=== PATIENT | male | born 1965 ===

== ENCOUNTER 2023-02-05 05:26 | Day surgery (SDC) | payer OTHER ==
[2023-02-03 10:47] LABS: URINE APPEARANCE Clear; URINE BILIRRUBIN Negative (NEGATIVE); URINE BLOOD Negative; URINE COLOR Yellow; URINE GLUCOSE Negative (NEGATIVE); URINE LEUKOCYTE Negative; URINE NITRATE Negative; URINE PROTEIN Negative (NEGATIVE); URINE UROBILINOGEN 0.2 E.U./dl
[2023-02-03 10:50] LABS: HEMATOCRIT 39.3 % (39.0-48.0); HEMOGLOBIN 12.9 g/dL (13-16.00); MEAN CELL VOLUME 76.6 fL (80.0-100.00); MEAN CORPUSCULAR HEMOGLOBIN 25.2 pg (27.00-32.0); MEAN CORPUSCULAR HGB CONC 32.9 g/dl (32.0-36.0); PLATELET COUNT 240 K/uL (150-450); RED BLOOD COUNT 5.13 M/uL (4.00-6.00)
[2023-02-03 11:19] LABS: ALBUMIN 3.7 gm/dL (3.4-5.0); BILIRUBIN TOTAL 1.25 mg/dL (0.3-1.2); CALCIUM 9.6 mg/dL (8.5-10.1); CREATININE SERUM 1.07 mg/dL (0.70-1.30); GFR 70.98; GLOBULINA 4.1 G/DL (2.4-3.5); INR 1.06; PARTIAL THROMBOPLASTIN TIME 27.6 SECONDS (22.0-34.0); POTASSIUM 4.93 mEq/L (3.5-5.1); PROTHROMBIN TIME 11.1 SECONDS (9.0-11.5); TOTAL PROTEIN 7.8 gm/dL (6.4-8.2)
[2023-02-03 11:51] LABS: URINE BACTERIA 2.5 uL (0.0-1933); URINE RBC 1.1 uL (0.0-20.8)
[~2023-02-05 05:26] MED LIST: ZESTRIL2.5 MG PO
[2023-02-05] MEDS ORDERED: OXYC1TAB9 PO (08:58)
== END 2023-02-05 14:40 | disposition home or self-care (01) ==
LOC: CIR.AMB 05:26
PROVIDERS: ATTEND Surgery
DX: K64.2 Third degree hemorrhoids (principal); K64.4 Residual hemorrhoidal skin tags; K64.8 Other hemorrhoids; K62.5 Hemorrhage of anus and rectum; K62.89 Other specified diseases of anus and rectum; I10 Essential (primary) hypertension; Z20.822 Contact with and (suspected) exposure to COVID-19; Z88.0 Allergy status to penicillin